=== PATIENT | male | born 1960 | race Caucasian/White ===

== ENCOUNTER 2021-01-15 11:18 | Outpatient (RCR) | payer BC, SELFPAY ==
[2021-01-15] MEDS: COVID-19 VACC, MRNA(PFIZER)/PF 30 MCG/0.3 ML SYRINGE IM (10:20)
[2021-02-05] MEDS: COVID-19 VACC, MRNA(PFIZER)/PF 30 MCG/0.3 ML SYRINGE IM (10:12)
== END 2021-01-15 23:59 ==
LOC: IMMUN 11:18
PROVIDERS: PCP Preventive Medicine Occupational Medicine; Visit Provider Family Medicine
DX: Z23 Encounter for immunization (principal)
CPT/HCPCS: 0001A; 0002A; 91300